=== PATIENT | male | born 1970 | race Two or more races ===

== ENCOUNTER 2021-06-24 12:07 | Inpatient (IN) | payer SELFPAY ==
[~2021-06-24] VITALS: Ht 182.9 cm; Wt 89.8 kg
[2021-06-24] MEDS ORDERED: LIDOCAINE HCL/EPINEPHRINE 1%-EPI 1:100,000 20 ML VIAL INFIL ONE (12:30)
[2021-06-24] MEDS ORDERED: PIPERACILLIN/TAZ 3.375G PREMIX 50 ML IV ONE (14:00)
[2021-06-24] MEDS ORDERED: VANCOMYCIN 1 G PREMIX 200 ML IV ONE (14:00)
[2021-06-24 16:17] LABS: CHLORIDE 89 mEq/L (98-107)
[2021-06-24 16:22] LABS: BASOPHILS % 0.5 % (0.0-2.0); EOSINOPHILS % 2.6 % (0.0-5.0); HEMATOCRIT. 39.9 % (42.0-52.0); HEMOGLOBIN. 13.6 g/dL (14.0-18.0); LYMPHOCYTES % 9.7 % (20.0-50.0); MEAN CORPUSCULAR HEMOGLOBIN 29.7 pg (28.0-32.0); MEAN CORPUSCULAR VOLUME 86.9 fL (80.0-94.0); MEAN PLATELET VOLUME 7.7 fl (7.4-10.4); MONOCYTES % 9.3 % (2.0-8.0); NEUTROPHILS % 77.9 % (40.0-76.0); PLATELET 619 x1000/uL (130-400); RED CELL DISTRIBUTION WIDTH 12.7 % (11.6-14.6)
[2021-06-24] MEDS ORDERED: SODIUM CHLORIDE 0.9% 1000ML BAG (SEPSIS BOLUS) IV ONE (18:15)
[2021-06-24] MEDS ORDERED: KETOROLAC 15MG/ML VIAL IV ONE (18:15)
[2021-06-24] MEDS ORDERED: NALOXONE HCL 0.4MG/ML VIAL IV PRN (22:45)
[2021-06-24] MEDS: HYDROCODONE/ACETAMINOPHEN 10/325MG TABLET PO PRN (22:47)
[2021-06-25 01:00] VITALS: BP 149/72
[2021-06-25] MEDS ORDERED: DEXTROSE 50% WATER 50ML SYRINGE IV PRN (02:00)
[2021-06-25] MEDS ORDERED: VANCOMYCIN 1 G PREMIX 200 ML IV SCH (04:00)
[2021-06-25] MEDS: VANCOMYCIN 1 G PREMIX 200 ML IV SCH ×3 (05:25→21:59)
[2021-06-25] MEDS: BLOOD SUGAR DIAGNOSTIC STRIP TEST SCH ×4 (06:34→21:03)
[2021-06-25] MEDS: PIPERACILLIN/TAZOBACTAM 3.375 G in DEXTROSE 5% WATER 50 ML IV SCH ×3 (06:37→22:34)
[2021-06-25] MEDS: HYDROCODONE/ACETAMINOPHEN 10/325MG TABLET PO PRN ×2 (06:42→22:05)
[2021-06-25 07:04] LABS: CHLORIDE 97 mEq/L (98-107)
[2021-06-25 07:12] LABS: PHOSPHORUS 2.7 mg/dL (2.5-4.9)
[2021-06-25 07:21] LABS: BASOPHILS % 0.7 % (0.0-2.0); EOSINOPHILS % 3.6 % (0.0-5.0); HEMATOCRIT. 36.7 % (42.0-52.0); HEMOGLOBIN. 12.1 g/dL (14.0-18.0); LYMPHOCYTES % 10.6 % (20.0-50.0); MEAN CORPUSCULAR HEMOGLOBIN 28.7 pg (28.0-32.0); MEAN CORPUSCULAR VOLUME 87.4 fL (80.0-94.0); MEAN PLATELET VOLUME 7.7 fl (7.4-10.4); MONOCYTES % 10.8 % (2.0-8.0); NEUTROPHILS % 74.3 % (40.0-76.0); PLATELET 635 x1000/uL (130-400); RED CELL DISTRIBUTION WIDTH 13.2 % (11.6-14.6)
[2021-06-25 08:00] VITALS: BP 162/82
[2021-06-25] MEDS: INSULIN LISPRO 100 UNITS/ML SUBCUT SCH ×4 (09:08→21:59)
[2021-06-25] MEDS ORDERED: INFLUENZA VACCINE 05/PF 0.5 ML SYRINGE IM ONE (10:00)
[2021-06-25] MEDS ORDERED: INSULIN GLARGINE UD 100 UNITS/ML SYR SUBCUT SCH (10:00)
[2021-06-25] MEDS ORDERED: CLONIDINE 0.1MG TABLET PO PRN (11:15)
[2021-06-25 12:00] VITALS: BP 146/71
[2021-06-25] MEDS ORDERED: POTASSIUM CHLORIDE 20MEQ TABLET SR PO SCH (12:00)
[2021-06-25] MEDS: AMLODIPINE 10MG TABLET PO SCH (12:12)
[2021-06-25 16:00] VITALS: BP 158/76
[2021-06-25] MEDS ORDERED: ACETAMINOPHEN 325MG TABLET PO PRN (21:15)
[2021-06-25] MEDS: INSULIN GLARGINE UD 100 UNITS/ML SYR SUBCUT SCH (22:00)
[2021-06-26] VITALS: BP 159/62
[2021-06-26 04:00] VITALS: BP 129/58
[2021-06-26] MEDS: VANCOMYCIN 1 G PREMIX 200 ML IV SCH ×4 (04:39→22:05)
[2021-06-26 05:49] LABS: EOSINOPHILS % 6.4 % (0.0-5.0); HEMOGLOBIN. 11.9 g/dL (14.0-18.0); LYMPHOCYTES % 18.8 % (20.0-50.0); MEAN CORPUSCULAR HEMOGLOBIN 29.8 pg (28.0-32.0); MEAN PLATELET VOLUME 7.4 fl (7.4-10.4); MONOCYTES % 12.3 % (2.0-8.0); NEUTROPHILS % 61.5 % (40.0-76.0); PLATELET 564 x1000/uL (130-400); RED BLOOD CELL COUNT 3.97 mill/uL (4.7-6.1); RED CELL DISTRIBUTION WIDTH 13.2 % (11.6-14.6)
[2021-06-26 06:08] LABS: CHLORIDE 99 mEq/L (98-107)
[2021-06-26] MEDS: BLOOD SUGAR DIAGNOSTIC STRIP TEST SCH ×4 (06:29→21:00)
[2021-06-26] MEDS: PIPERACILLIN/TAZOBACTAM 3.375 G in DEXTROSE 5% WATER 50 ML IV SCH ×3 (06:29→22:12)
[2021-06-26] MEDS: INSULIN LISPRO 100 UNITS/ML SUBCUT SCH ×4 (07:50→21:00)
[2021-06-26 08:00] VITALS: BP 158/66
[2021-06-26] MEDS: AMLODIPINE 10MG TABLET PO SCH (08:39)
[2021-06-26] MEDS: INSULIN GLARGINE UD 100 UNITS/ML SYR SUBCUT SCH ×2 (10:11→22:13)
[2021-06-26] MEDS: HYDROCODONE/ACETAMINOPHEN 10/325MG TABLET PO PRN (10:15)
[2021-06-26] MEDS ORDERED: POTASSIUM CHLORIDE 20MEQ TABLET SR PO SCH (11:30)
[2021-06-26 12:00] VITALS: BP 149/74
[2021-06-26] MEDS: VANCOMYCIN 1250MG in DEXTROSE 5% WATER 250ML IV SCH ×2 (14:24→22:12)
[2021-06-26 16:00] VITALS: BP 137/59
[2021-06-26] MEDS ORDERED: INFLUENZA VACCINE 05/PF 0.5 ML SYRINGE IM ONE (18:15)
[2021-06-27] VITALS: BP 159/62
[2021-06-27 04:00] VITALS: BP 136/58
[2021-06-27] MEDS: HYDROCODONE/ACETAMINOPHEN 10/325MG TABLET PO PRN (04:15)
[2021-06-27] MEDS: VANCOMYCIN 1250MG in DEXTROSE 5% WATER 250ML IV SCH ×2 (04:15→13:31)
[2021-06-27] MEDS: PIPERACILLIN/TAZOBACTAM 3.375 G in DEXTROSE 5% WATER 50 ML IV SCH ×2 (06:51→16:22)
[2021-06-27] MEDS: BLOOD SUGAR DIAGNOSTIC STRIP TEST SCH ×4 (06:51→21:00)
[2021-06-27] MEDS: INSULIN LISPRO 100 UNITS/ML SUBCUT SCH ×4 (07:50→21:00)
[2021-06-27 08:00] VITALS: BP 138/62
[2021-06-27] MEDS: AMLODIPINE 10MG TABLET PO SCH (09:00)
[2021-06-27] MEDS: INSULIN GLARGINE UD 100 UNITS/ML SYR SUBCUT SCH ×2 (10:00→22:00)
[2021-06-27 10:24] LABS: BASOPHILS % 1.1 % (0.0-2.0); EOSINOPHILS % 6.6 % (0.0-5.0); HEMATOCRIT. 35.1 % (42.0-52.0); HEMOGLOBIN. 11.9 g/dL (14.0-18.0); LYMPHOCYTES % 13.1 % (20.0-50.0); MEAN CORPUSCULAR VOLUME 88.6 fL (80.0-94.0); MEAN PLATELET VOLUME 7.1 fl (7.4-10.4); NEUTROPHILS % 68.2 % (40.0-76.0); PLATELET 605 x1000/uL (130-400); RED BLOOD CELL COUNT 3.97 mill/uL (4.7-6.1); RED CELL DISTRIBUTION WIDTH 13.1 % (11.6-14.6)
[2021-06-27 10:29] LABS: CHLORIDE 103 mEq/L (98-107)
[2021-06-27 12:00] VITALS: BP 136/68
[2021-06-27 16:00] VITALS: BP 140/65
[2021-06-27] MEDS ORDERED: LANTUSUD SUBCUT (17:33)
[2021-06-27] MEDS ORDERED: AMLO10TA80 PO (17:33)
[2021-06-27] MEDS ORDERED: CEPH500C2 MT (19:00)
[2021-06-27] MEDS: SODIUM HYPOCHLORITE 0.125% 473ML SOLUTION TOP SCH (19:12)
[2021-06-27] MEDS ORDERED: DOXY100C5 MT (19:40)
[2021-06-27 20:00] VITALS: BP 132/60
[2021-06-27] MEDS: CEFAZOLIN 2,000 MG in DEXT 5% WATER 100 ML IV SCH (22:25)
[2021-06-27] MEDS: DOXYCYCLINE HYCLATE 100MG CAPSULE PO SCH (22:43)
[2021-06-28] VITALS: BP 135/65
[2021-06-28 04:00] VITALS: BP 128/62
[2021-06-28] MEDS: CEFAZOLIN 2,000 MG in DEXT 5% WATER 100 ML IV SCH ×2 (05:19→12:54)
[2021-06-28] MEDS: INSULIN LISPRO 100 UNITS/ML SUBCUT SCH ×2 (05:34→12:50)
[2021-06-28] MEDS: BLOOD SUGAR DIAGNOSTIC STRIP TEST SCH ×2 (05:34→12:54)
[2021-06-28 08:00] VITALS: BP 155/81
[2021-06-28] MEDS: AMLODIPINE 10MG TABLET PO SCH (08:58)
[2021-06-28] MEDS: SODIUM HYPOCHLORITE 0.125% 473ML SOLUTION TOP SCH (08:58)
[2021-06-28] MEDS: DOXYCYCLINE HYCLATE 100MG CAPSULE PO SCH (08:58)
[2021-06-28] MEDS: INSULIN GLARGINE UD 100 UNITS/ML SYR SUBCUT SCH (10:56)
[2021-06-28 12:00] VITALS: BP 154/68
[2021-06-28 13:19] VITALS: BP 146/78
[2021-06-28 16:00] VITALS: BP 144/74
== END 2021-06-28 16:46 | disposition home or self-care (01) | DRG 720 ==
LOC: ER 12:07 → 6EST 19:49 → ENRESERV 06-25 00:15
PROVIDERS: ADMIT Internal Medicine; ATTEND Internal Medicine
DX: A41.01 Sepsis due to Methicillin susceptible Staphylococcus aureus (principal); E43 Unspecified severe protein-calorie malnutrition; E87.8 Other disorders of electrolyte and fluid balance, not elsewhere classified; E87.1 Hypo-osmolality and hyponatremia; D64.9 Anemia, unspecified; E11.65 Type 2 diabetes mellitus with hyperglycemia; I10 Essential (primary) hypertension; L02.31 Cutaneous abscess of buttock; L03.317 Cellulitis of buttock; Z68.26 Body mass index [BMI] 26.0-26.9, adult
CPT/HCPCS: 36415; 74177; 80048; 80053; 80202; 82040; 82962; 83036; 83605; 84100; 84134; 84145; 85025; 87070; 87077; 87186; 90686; 93306; 99285; C1893; J0690; J1815; J1885; J2543; J3370; J3490; J7030; J7040; J7060